=== PATIENT | male | born 1955 | race Caucasian/White ===

== ENCOUNTER 2016-04-03 06:32 | Emergency (ER) | payer OTHER ==
[~2016-04-03] VITALS: Ht 177.8 cm; Wt 124.3 kg
[~2016-04-03 06:32] MED LIST changes: -ISOS10TA2 PO
--- OUTSIDE RECORDS SUMMARY | 2016-04-03 06:37 | XMS REPORT | Continuity of Care Document ---
Author Author [facility] Organization [facility] Address Unknown Phone Unavailable Support Name Relationship Address Phone SEANJOSE MARIA MD Caregiver [address] [place] [phone] BALBIR KNOX MD Caregiver [address] [facility] [place] [address] [place] Next Of Kin [address] [facility] [place] [address] Insurance Providers Payer Name Policy Number Subscriber Name Relationship [facility] [id number] Arturo Louis 16 Self / Same As Patient Chief Complaint and Reason for Visit Chief Complaint Recheck Reason for Visit [id number] Gastroenteritis Problems Medical Problems Problem Onset Date Status Chest pain 12/02/2012 Active Upper respiratory infection Unknown Active Dizziness Unknown Active Diabetes mellitus Unknown Active Diabetes mellitus type 2, uncontrolled Unknown Active Gastroenteritis Unknown Active Medications Medication Dose Route Sig Days/Qty Instructions Order Date Discontinued Date Status Aspirin 12/02/12 03/05/14 Discontinued Metformin Hcl 12/02/12 03/17/14 Discontinued Simvastatin 12/02/12 03/17/14 Discontinued Ciprofloxacin 1 Tab ORAL TWICE A DAY 10 Qty 03/05/14 03/17/14 Discontinued Amlodipine Besylate (Norvasc) 10 Mg ORAL DAILY 03/17/14 Active Hydrochlorothiazide 12.5 Mg ORAL DAILY 03/17/14 Active Hydrocodone/Acetaminophen 1 Each ORAL NEEDED 03/17/14 Active Hum Insulin Nph/Reg Insulin Hm 100 Unit SQ TWICE A DAY WITH MEALS Active Lisinopril (Zestril) 40 Mg ORAL DAILY 03/17/14 Active Methocarbamol 500 Mg ORAL THREE TIMES A DAY PRN MUSCLE SPASMS Active Metoprolol Tartrate 50 Mg ORAL TWICE A DAY 03/17/14 Active Simvastatin 80 Mg ORAL DAILY 03/17/14 Active Meclizine Hcl 25 Mg ORAL THREE TIMES A DAY PRN DIZZINESS 12 Qty Active Social History No social history. Hospital Discharge Instructions No hospital discharge instructions. Plan of Care Discharge Date 06/30/14 9:30am Disposition 01 HOME OR SELF-CARE Condition at Discharge Stable Instructions/Education Provided Diabetes Mellitus Type 2 in Adults (ED) Forms Provided Return to Work Prescriptions See Medications Section Additional Instructions/Education Take your medicines regularly as prescribed and follow diet as closely as you can. Follow up with your Dr as soon as they can schedule an appointment for re-evaluation of treatment and to replace and/or repair your glucose meter. You may return to work. Some of your test results may not be complete prior to your leaving the Emergency Department. The Emergency Department is not authorized to give test results over the phone. Please contact the doctor's office listed in this packet of information for your final results. Follow up with your primary care physician or return to the Emergency Department for worsening or worrisome symptoms. * Emergency Department phone number: [phone], x [phone]* MEDICAL RECORD If you need copies of your X-rays, call [phone]. If you need copies of your medical record, including lab results, a signed authorization for release of records will be required. A telephone call for release of Health Information is not allowed. BILLING Billing can sometimes be confusing and frustrating. To help avoid confusion in the future, please take a moment to acquaint yourself with the billing parties for services. SERVICE BILLING LIBERTARIAN Emergency Room Services [facility] Physician Services [facility] X-rays [place] [facility] Patients will receive bills for services from the appropriate provider. If you have any questions about your [facility] bill, our staff will be happy to assist you. Please call [phone], and ask for the billing department. THANK YOU for choosing [facility] as your emergency care provider! Functional Status No functional status results. Allergies, Adverse Reactions, Alerts Allergen Type Severity Reaction Status Last Updated No Known Drug Allergies Active 12/02/12 Immunizations No immunization records. Vital Signs Acute Vital Signs Vital Response Date/Time Temperature (Fahrenheit) 97.7 Pulse 87 bpm Respirations 18 Height 5 ft 10 in Weight 305 lb Body Mass Index 43.0 kg/m^2 Results Test Source Date Result Interp. Ref. Range Comments Activated Partial Thromboplast Time December 02, 2012 3:30pm 28.1 SEC N 25.0-39.0 Alanine Aminotransferase (ALT/SGPT) March 17, 2014 8:10am 34 U/L N 30 -65 Albumin March 17, 2014 8:10am 4.2 G/DL N 3.4-5.0 Albumin/Globulin Ratio March 17, 2014 8:10am 1.500 N 1.1-1.8 Alkaline Phosphatase March 17, 2014 8:10am 62 U/L N 38-126 Anion Gap June 30, 2014 8:43am 13.3 MEQ/L N 3-15 Aspartate Amino Transf (AST/SGOT) March 17, 2014 8:10am 16 U/L N 15- 37 BUN/Creatinine Ratio June 30, 2014 8:43am 23 H 10-20 Basophils # (Auto) March 17, 2014 8:10am 0.1 10^3uL Basophils (%) (Auto) March 17, 2014 8:10am 1 % N 0-2 Blood Urea Nitrogen June 30, 2014 8:43am 26 mg/dL H 7-18 Calcium Level June 30, 2014 8:43am 9.8 mg/dL N 8.8-10.8 Calcium/Ionized Calcium Ratio March 17, 2014 8:10am 4.0 mg/dL N 3.8- 4.6 Calculated Osmolality March 17, 2014 8:10am 282 MOSM/L N 280-300 Carbon Dioxide Level June 30, 2014 8:43am 31 mmol/L H 22-29 Chloride Level June 30, 2014 8:43am 92 mmol/L L 98-108 Creatine Kinase MB December 02, 2012 3:30pm 1.2 NG/ML N 0.0-6.0 Creatinine June 30, 2014 8:43am 1.14 mg/dL N 0.8-1.5 D-Dimer December 02, 2012 3:30pm < 0.19 ug/mL L 0.20-0.41 Eosinophils # (Auto) March 17, 2014 8:10am 0.5 10^3uL Eosinophils (%) (Auto) March 17, 2014 8:10am 4 % N 0-4 Estimat Glomerular Filtration Rate June 30, 2014 8:43am 79.3 Estimated GFR (Non- June 30, 2014 8:43am 65.5 Glucose Level June 30, 2014 8:43am 491 mg/dL DPH 70-110 Results called to VERITO IN ERwho read back the results. Called by Mallory Bernard at 0902 Hematocrit March 17, 2014 8:10am 45.90 % N 39.00-50.00 Hemoglobin March 17, 2014 8:10am 16.1 g/dL N 13.5-17.0 Lymphocytes # (Auto) March 17, 2014 8:10am 2.5 X10^3 Lymphocytes (%) (Auto) March 17, 2014 8:10am 23 % N 20-46 Mean Corpuscular Hemoglobin March 17, 2014 8:10am 29.0 PG N 26.0- 34.0 Mean Corpuscular Hemoglobin Concent March 17, 2014 8:10am 35.1 g/dL N 31.0-37.0 Mean Corpuscular Volume March 17, 2014 8:10am 83 FL N 80-100 Mean Platelet Volume March 17, 2014 8:10am 11.3 FL H 6.0-9.5 Monocytes # (Auto) March 17, 2014 8:10am 0.6 X10^3 Monocytes (%) (Auto) March 17, 2014 8:10am 5 % N 3-11 Neutrophils # (Auto) March 17, 2014 8:10am 7.3 X10^3 Neutrophils (%) (Auto) March 17, 2014 8:10am 66 % N 51-67 Platelet Count March 17, 2014 8:10am 225 10^3uL N 150-450 Potassium Level June 30, 2014 8:43am 4.3 mmol/L N 3.5-5.1 Prothromb Time International Ratio December 02, 2012 3:30pm 0.9 N 0.8- 1.4 Prothrombin Time December 02, 2012 3:30pm 12.6 SEC N 12.3-14.4 Red Blood Count March 17, 2014 8:10am 5.55 10^6uL H 4.50-5.50 Red Cell Distribution Width March 17, 2014 8:10am 12.9 % N 11.8-15.6 Sodium Level June 30, 2014 8:43am 132 mmol/L L 135-150 Total Bilirubin March 17, 2014 8:10am 1.2 MG/DL DH 0.1-1.0 Total Creatine Kinase December 02, 2012 3:30pm 77 U/L N 55-170 Total Protein March 17, 2014 8:10am 7.0 G/DL N 6.4-8.5 Troponin I December 02, 2012 5:00pm < 0.012 ng/mL 0.010-0.080 Urine Bilirubin March 17, 2014 8:27am Negative Negative Urine collection method Clean Catch Urine Blood March 17, 2014 8:27am Negative Negative Urine collection method Clean Catch Urine Clarity March 17, 2014 8:27am Clear Urine collection method Clean Catch Urine Collection Type March 17, 2014 8:27am Clean catch Urine collection method Clean Catch Urine Color March 17, 2014 8:27am Yellow Urine collection method Clean Catch Urine Glucose (UA) March 17, 2014 8:27am 2+ H Negative Urine collection method Clean Catch Urine Ketones March 17, 2014 8:27am Negative Negative Urine collection method Clean Catch Urine Leukocyte Esterase March 17, 2014 8:27am Negative Negative Urine collection method Clean Catch Urine Nitrite March 17, 2014 8:27am Negative Negative Urine collection method Clean Catch Urine Protein March 17, 2014 8:27am Negative Negative Urine collection method Clean Catch Urine Specific [place] March 17, 2014 8:27am 1.015 1.005-1.030 Urine collection method Clean Catch Urine Urobilinogen March 17, 2014 8:27am 0.2 mg/dL 0.2-1.0 Urine collection method Clean Catch Urine pH March 17, 2014 8:27am 5.5 5.0 - 8.0 Urine collection method Clean Catch White Blood Count March 17, 2014 8:10am 11.05 10^3uL H 4.0-11.0 Procedures No known history of procedures. Encounters Encounter Location Date/Time Departed Emergency Room [facility] 06/30/14 8:14am Recent Diagnosis
--- OUTSIDE RECORDS SUMMARY | 2016-04-03 06:39 | XMS REPORT | Continuity of Care Document ---
Author Author [facility] Organization [facility] Address Unknown Phone Unavailable Support Name Relationship Address Phone SEANJOSE MARIA MD Caregiver [address] [place] [address] BALBIR KNOX MD Caregiver [address] [facility] [place] [address] [place] Next Of Kin [address] [facility] [address] Insurance Providers Payer Name Policy Number Subscriber Name Relationship [facility] [id number] Arturo Louis 16 Self / Same As Patient Chief Complaint and Reason for Visit Chief Complaint Recheck Reason for Visit [id number] Gastroenteritis Problems Medical Problems Problem Onset Date [...] worrisome symptoms. * Emergency Department phone number: [phone], x [phone]* MEDICAL RECORD If you need copies of your X-rays, call [phone] x [phone]. If you need copies of [...] services. SERVICE BILLING LIBERTARIAN Emergency Room Services [facility] Physician Services [facility] X-rays [place] [facility] Patients will receive bills for services from the appropriate provider. If you have any questions about your [facility] bill, our staff will be happy to assist you. Please call [phone], and ask for the billing department. THANK YOU for choosing [facility] as your emergency care provider! Functional Status [...] Urine collection method Clean Catch Urine Specific [place] March 17, 2014 8:27am 1.015 1.005-1.030 Urine [...] Encounters Encounter Location Date/Time Departed Emergency Room [facility] 06/30/14 8:14am Recent Diagnosis
[2016-04-03] MEDS ORDERED: ASPIRIN 81 MG CHEW (CHILDREN'S ASA) ONE (06:40)
[2016-04-03] MEDS ORDERED: NITROGLYCERIN SUBLINGUAL 0.4 MG (NITROQUICK) TABLET SL ONE (06:41)
--- NOTE | 2016-04-03 06:45 | NUR ---
Pt given a sl nitro
--- NOTE | 2016-04-03 06:50 | NUR ---
Pt rates his pain at a 2 now
[2016-04-03] MEDS ORDERED: ONDANSETRON 2 MG/ML (Z0FRAN) 2 ML VIAL IV ONE (06:55)
[2016-04-03] MEDS ORDERED: SODIUM CHLORIDE 250 ML IV PRN (06:55)
[2016-04-03] MEDS ORDERED: SODIUM CHLORIDE FLUSH 10 ML SYR IV PRN (06:55)
[2016-04-03] MEDS ORDERED: morphine INJ 4 MG/ML 1 ML SYRINGE IV PRN (06:55)
[2016-04-03] MEDS ORDERED: ASPIRIN 81 MG CHEW (CHILDREN'S ASA) PO ONE (06:55)
[2016-04-03] MEDS ORDERED: SODIUM CHLORIDE FLUSH 3 ML SYR IV PRN (06:55)
[2016-04-03 06:57] LABS: BASOPHILS % (AUTO) 1 % (0-2); EOSINOPHILS # (AUTO) 0.3 10^3uL; EOSINOPHILS % (AUTO) 3 % (0-4); LYMPHOCYTES # (AUTO) 2.2 X10^3; MEAN CORPUSCULAR HEMOGLOBIN 28.4 PG (26.0-34.0); MEAN CORPUSCULAR HGB CONC 34.8 g/dL (31.0-37.0); MEAN CORPUSCULAR VOLUME 82 FL (80-100); MONOCYTES # (AUTO) 0.6 X10^3; MONOCYTES % (AUTO) 6 % (3-11); NEUTROPHILS # (AUTO) 6.6 X10^3; NEUTROPHILS % (AUTO) 67 % (51-67); PLATELET COUNT 226 10^3uL (150-450); WHITE BLOOD COUNT 9.84 10^3uL (4.0-11.0)
[2016-04-03] MEDS: NITROGLYCERIN SUBLINGUAL 0.4 MG (NITROQUICK) TABLET SL PRN ×3 (06:58→07:33)
[2016-04-03] MEDS ORDERED: ISOS10TA2 PO (07:04)
[2016-04-03 07:08] LABS: ALBUMIN 4.5 g/dL (3.4-5.0); ALKALINE PHOSPHATASE 70 U/L (38-126); ANION GAP 16.9 MEQ/L (3-15); BUN/CREATININE RATIO 20 (10-20); CALCULATED IONIZED CALCIUM 4.1 mg/dL (3.8-4.6); CREATINE KINASE 34 U/L (55-170); TOTAL PROTEIN 7.3 g/dL (6.4-8.5)
[2016-04-03] MEDS ORDERED: meTOprolol 5 MG/5 ML (LOPRESSOR) VIAL IV ONE (07:20)
--- NOTE | 2016-04-03 07:36 | NUR ---
PH CALL TO [facility] WHERE THE ED ANSWERS THE PHONE IT IS BEFORE 8AM. ALL INFO RE PT GIVEN AT THIS TIME RE POSS TSF. IA REQUESTS THAT WE FAX ALL OF OUR TEST RESULTS & INFORMATION TO THEM AT THIS TIME FOR THEIR REVIEW & THEIR ED MD WILL CALL BACK TO TALK TO DR WILLARD RE PT. FAX COMPLETE IMMED AFTER PH CALL COMPLETED WITH SUCCESSFUL TRANSMISSION. CL
--- NOTE | 2016-04-03 07:51 | Diagnostic Imaging Report ---
Clinical indication: Patient with chest pain. Exam: Portable chest x-ray upright view. Comparisons: Chest x-ray dated 02/11/2016 and 12/02/2012. Findings: Lungs/pleura: Stable blunting of the right costophrenic angle region which is related to lung scarring. Lungs are otherwise clear. There is no pneumothorax. There is no pleural effusion. Mediastinum: Unremarkable. Pulmonary vasculature: Unremarkable. Heart: Heart size is upper limits of normal. Bones/extrathoracic soft tissue: Unremarkable. Impression: 1: Stable chest x-ray exam with no interval radiographic evidence of acute cardiopulmonary process. 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 Dictated by: Dictated on workstation # [id number]
--- NOTE | 2016-04-03 08:18 | NUR ---
PTS RETURNS WITH PT PAPERWORK FROM [facility] DONE 03/01/16 & THERE ARE SEVERAL DR NAMES ON THIS PAPERWORK THAT ARE RESIDENTS ALONG WITH CARDIAC DR NAME OF DR HERNANDEZ. PTS GIVEN A CUP OF COFFEE. PT CONT TO DECLINE BLANKET, GOWN, & ORAL MOUTH SWABS. CONT TO BE PAIN FREE AT THIS TIME. CL
--- NOTE | 2016-04-03 08:55 | NUR ---
This nurse calls [facility] regarding status of pt transfer, speaks with Sacha - transfer RN. Questions answered by this nurse - he will call back with more information.
--- NOTE | 2016-04-03 09:37 | NUR ---
[facility] CALLS TO TALK WITH DR WILLARD. CL
[2016-04-03] MEDS ORDERED: NITROGLYCERIN 2% OINTMENT (NITRO-BID) 1 GM UNIT DOSE PACKET TOP ONE ×2 (09:43→09:45)
[2016-04-03 10:04] VITALS: BP 114/59
== END 2016-04-03 10:16 | disposition short-term general hospital (02) ==
LOC: ED 06:35
DX: R07.9 Chest pain, unspecified (principal); Z87.891 Personal history of nicotine dependence
CPT/HCPCS: 36415; 71010; 80053; 82550; 82553; 84484; 85025; 85610; 85730; 93005; 99285; J7050; 93010; 99291

== ENCOUNTER → 2016-04-03 | Outpatient (CLI) | payer OTHER ==
[~2016-04-03] MED LIST: AMLO10TA82 PO; ASPI-479; ASPI-586 PO; ATOR40TA59 PO; CPR500T PO; HUM100VI4 SQ; HYDR-508 PO; HYDR12.56 PO; INSU100V5 SC; ISOS10TA2 PO; MECL-115 PO; METF500T4; METF850T2 PO; METH500T35 PO; MTP50T PO; NF-LISIN40 PO; SIMV40TA2; SIMV80TA3 PO
== END ==
LOC: EMS 10:20
PROVIDERS: ATTEND Emergency Medicine
DX: R07.89 Other chest pain (principal)